=== PATIENT | female | born 1980 | race Two or more races ===

== ENCOUNTER 2016-10-07 12:59 | Emergency (ER) | payer SELFPAY ==
[~2016-10-07] VITALS: Ht 160 cm; Wt 79.3 kg
[2016-10-07] MEDS ORDERED: NAPROXEN500 MG PO (16:10)
[2016-10-07 17:08] VITALS: BP 111/73
== END 2016-10-07 17:10 | disposition home or self-care (01) ==
LOC: EME 12:59 → EDBD 12:59 → EME 17:10
PROC: 3E0234Z Introduction of Serum, Toxoid and Vaccine into Muscle, Percutaneous Approach (ICD-10-PCS; principal; 2016-10-07)
DX: S40.012A Contusion of left shoulder, initial encounter (principal); S80.02XA Contusion of left knee, initial encounter; S80.212A Abrasion, left knee, initial encounter; W10.9XXA Fall (on) (from) unspecified stairs and steps, initial encounter; Z23 Encounter for immunization
CPT/HCPCS: 73030; 99281; 99284; J1885